=== PATIENT | male | born 1970 | race Caucasian/White ===

== ENCOUNTER 2017-01-04 17:02 | Emergency (ER) | payer OTHER | END 2017-01-05 02:34 | disposition home or self-care (01) | LOC: ER 17:02 | DX: T40.1X1A Poisoning by heroin, accidental (unintentional), initial encounter (principal); I10 Essential (primary) hypertension; Z88.5 Allergy status to narcotic agent | CPT/HCPCS: 36415; 96361; 96374; G0480 ==